=== PATIENT | female | born 1995 | race Caucasian/White ===

== ENCOUNTER → 2018-06-18 18:04 | Observation (INO) ==
[2018-06-18 16:43] LABS: Bilirubin,Urine Negative (Negative); Blood,Urine Negative (Negative); Clarity,Urine Turbid (Clear); Color,Urine Yellow (Yellow); Glucose,Urine (UA) Normal (Normal); Ketones,Urine Negative (Negative); Leukocyte Esterase,Urine Small (Negative); Nitrite,Urine Negative (Negative); PH,Urine 6.5 pH Units (5.0-8.0); Protein,Urine Negative (Neg-Trace); Urobilinogen,Urine Normal (Normal)
[2018-06-18 16:47] LABS: Bacteria,Urine Moderate per hpf (None-Few); Hyaline Casts,Urine None Seen per lpf (None-Few); RBC,Urine 0-3 per hpf (0-3); Squamous Epithelial Cell,Urine Many per lpf (None-Few)
[2018-06-18 16:51] LABS: Amphetamine Screen,Urine Negative ng/mL (Cutoff=1000); Barbiturate Screen,Urine Negative ng/mL (Cutoff=200); Benzodiazepines Screen,Urine Negative ng/mL (Cutoff=200); Cannabinoid Screen,Urine Negative ng/mL (Cutoff = 50); Cocaine Screen,Urine Negative ng/mL (Cutoff= 300); Opiate Screen,Urine Negative ng/mL (Cutoff=300); Phencyclidine Screen,Urine Negative ng/mL (Cutoff=25)
--- NOTE | 2018-06-18 17:57 | OB/GYN Progress Note ---
Date of Encounter: 06/18/18 Time of Encounter: 17:53 - Assessment and Plan (1) 28 weeks gestation of Current Visit: Yes Status: Acute Urinalysis suspicious of UTI - Rx for macrobid given Appropriate FHTs for gestation Discharge home with bleeding and PTL precautions Follow up with Dr Sanchez with routine care and PRN (2) Urinary tract infection affecting Current Visit: Yes Status: Acute Subjective - Subjective Principal diagnosis: Sharp pain in lower abdomen Interval history: Ms Santana is a at 28 weeks that present to the office with c/o lower abdominal sharp pains and cramping that began last this morning and progressively have worsened. She denies any problems with this or any previous pregnancies. Patient states that she sees Dr Sanchez for her care. She states she had vaginal spotting of blood with wiping earlier today. She denies any headaches, vision changes, epigastric pain, leaking of fluid, and intercourse in the past 24 hours. She states positive movement. Antepartum ROS: movement normal Objective - Vital Signs Vital Signs: Intake and Output 06/18/18 06/18/18 06/18/18 07:59 15:59 23:59 Other: Weight 67.8 kg Patient Weight 06/18/18 23:59 Weight 67.8 kg - Exam FHR: auscultation normal, category 1 FHR comments: No contractions per TOCO or palpation. Baseline 145 with moderate variability. Appropriate for gestation. Abdomen: Present: normal appearance, soft, gravid Uterus: Present: normal. Absent: firm Comments: SSE - normal vaginal moisture. No blood noted in vaginal vault. No pooling. Cervix appears visually closed - Labs Labs: Abnormal lab results Urine Clarity Turbid (Clear) A 06/18/18 16:10 Ur Leukocyte Esterase Small (Negative) H 06/18/18 16:10 Urine Microscopic WBC 5-15 per hpf (0-3) H 06/18/18 16:10 Ur Squamous Epith Cells Many per lpf (None-Few) H 06/18/18 16:10 Urine Bacteria Moderate per hpf (None-Few) H 06/18/18 16:10 Ur Culture Indicated? YES (NO) A 06/18/18 16:10
[~2018-06-18 18:04] MED LIST: NON-FORMULARY MEDICATION 1 EACH EACH (Prenatal Vit Calc,Iron,Folic [Prenatal Vitamins] 1 T PO SCH
== END | disposition home or self-care (01) ==
LOC: 1NENULAB
PROVIDERS: ADMIT Advanced Practice Midwife; ATTEND Advanced Practice Midwife